=== PATIENT | male | born 1975 | race Caucasian/White ===

== ENCOUNTER 2020-06-15 06:57 | Emergency (ER) | payer MEDICAID, OTHER, SELFPAY ==
[~2020-06-15] VITALS: Ht 182.9 cm; Wt 98.0 kg
[2020-06-15 06:59] VITALS: BP 143/87
--- NOTE | 2020-06-15 07:28 | NUR ---
Betadine and warm water foot soak initiated per order. Pt tolerating well, denies other needs. Pt provided with two pairs new socks.
--- NOTE | 2020-06-15 07:52 | NUR ---
Foot soak completed. Pt tolerated well, reports feet still "sore", denies other needs.
== END 2020-06-15 08:04 | disposition home or self-care (01) ==
LOC: ED 07:51
DX: B35.3 Tinea pedis (principal); M79.671 Pain in right foot; M79.672 Pain in left foot; F17.210 Nicotine dependence, cigarettes, uncomplicated
CPT/HCPCS: 99282; 99406

== ENCOUNTER 2020-07-16 16:26 | Emergency (ER) | payer MEDICAID ==
[~2020-07-16] VITALS: Ht 185.4 cm; Wt 93.2 kg
--- NOTE | 2020-07-16 16:51 | NUR ---
patient arrives on amoxicillan and has a abcess to right hand.
[2020-07-16] MEDS ORDERED: LIDOCAINE-MPF 1%, 5ML ONE (16:59)
--- NOTE | 2020-07-16 17:13 | NUR ---
prepped for i & d and lido to
[2020-07-16] MEDS ORDERED: TRANEXAMIC ACID 100 MG/ML, 10ML ONE (17:39)
[2020-07-16] MEDS ORDERED: ACETAMINOPHEN 500 MG TABLET PO ONE (18:00)
[2020-07-16] MEDS ORDERED: TRANEXAMIC ACID 100 MG/ML, 10ML TP ONE (18:00)
[2020-07-16] MEDS ORDERED: ACETAMINOPHEN 500 MG TABLET ONE (18:12)
[2020-07-16 18:14] VITALS: BP 123/78
== END 2020-07-16 18:20 | disposition home or self-care (01) ==
LOC: ED 18:14
DX: L03.113 Cellulitis of right upper limb (principal); F15.10 Other stimulant abuse, uncomplicated; F41.9 Anxiety disorder, unspecified; F17.200 Nicotine dependence, unspecified, uncomplicated
CPT/HCPCS: 10060; 12001; 99283

== ENCOUNTER 2020-09-13 04:55 | Emergency (ER) | payer MEDICAID ==
[~2020-09-13] VITALS: Ht 188 cm; Wt 86.0 kg
--- NOTE | 2020-09-13 05:07 | NUR ---
BLADDER SCAN SHOWED GREATER THAN 1L OF FLUID
[2020-09-13] MEDS ORDERED: LIDOCAINE 2%,20 ML JEL.PF.APP MM ONE ×2 (05:18→05:30)
--- NOTE | 2020-09-13 05:42 | NUR ---
ABEL PLACED FOR URINARY RETENTION. PT TOLERATED WELL UA COLLECTED AND SENT TO LAB. PT NOW RESTING. 600 MLS OF URINE DRAINED AND BLADDER STILL EMPTYING. CALL LIGHT IN REACH
[2020-09-13 06:30] LABS: MICROSCOPIC NOT IND
[2020-09-13 06:37] LABS: BASOPHILS % (AUTO) 0 % (0-1); EOSINOPHILS % (AUTO) 0 % (1-7); LYMPHOCYTES % (AUTO) 8 % (22-44); MEAN CORPUSCULAR HGB CONC 34.5 g/dL (33.2-36.2); MEAN PLATELET VOLUME 7.4 fL (7.4-10.4); MONOCYTES % (AUTO) 2 % (2-9); NEUTROPHILS % (AUTO) 89 % (42-75); PLATELET COUNT 369 x10^3/uL (130-400); RED BLOOD COUNT 4.69 x10^6/uL (4.38-5.82); RED CELL DISTRIBUTION WIDTH 12.5 % (9.4-14.8)
--- NOTE | 2020-09-13 06:45 | NUR ---
REPORT TO ABDIRAHMAN ZULUAGA.
[2020-09-13 06:46] LABS: ALBUMIN 3.9 g/dL (3.4-5.0); ANION GAP 10 mmol/L (5-15); CALCIUM 9.7 mg/dL (8.5-10.1); CHLORIDE 104 mmol/L (98-107)
[2020-09-13 06:48] LABS: CREATININE 1.23 mg/dL (0.7-1.3)
[2020-09-13 07:17] LABS: MD SCAN
[2020-09-13] MEDS ORDERED: CEFTRIAXONE 250 MG ONE (07:24)
[2020-09-13] MEDS ORDERED: LIDOCAINE-MPF 1%, 2ML ONE (07:25)
--- NOTE | 2020-09-13 07:27 | NUR ---
MD Bueno back to bedside to update pt on POC.
[2020-09-13] MEDS ORDERED: CEFTRIAXONE 250 MG IM ONE (07:30)
[2020-09-13 07:35] VITALS: BP 118/71
== END 2020-09-13 08:32 | disposition home or self-care (01) ==
LOC: ED 08:23
DX: R33.9 Retention of urine, unspecified (principal); F17.200 Nicotine dependence, unspecified, uncomplicated
CPT/HCPCS: 36415; 51702; 76770; 80048; 81003; 82040; 85025; 87491; 87591; 96372; 99284; J0696

== ENCOUNTER 2020-09-14 12:57 | Emergency (ER) | payer MEDICAID ==
[~2020-09-14] VITALS: Ht 185.4 cm; Wt 88.0 kg
[2020-09-14 13:00] VITALS: BP 103/73
[2020-09-14] MEDS ORDERED: LIDOCAINE 2%,20 ML JEL.PF.APP MM ONE ×2 (13:35→14:00)
--- NOTE | 2020-09-14 13:38 | NUR ---
PT EDUCATED ON USE OF UROJECT FOR HOME. PT VERBALIZES UNDERSTANDING.
== END 2020-09-14 13:50 | disposition home or self-care (01) ==
LOC: ED 13:40
DX: T83.011A Breakdown (mechanical) of indwelling urethral catheter, initial encounter (principal); R33.9 Retention of urine, unspecified; Z79.899 Other long term (current) drug therapy
CPT/HCPCS: 99282